=== PATIENT | male | born 1985 | race Asian ===

== ENCOUNTER 2019-02-21 09:23 | Day surgery (SDC) | payer MEDICAID ==
[~2019-02-21] VITALS: Ht 175.3 cm; Wt 71.8 kg
[2019-02-21 09:30] VITALS: BP 130/77
[2019-02-21] MEDS ORDERED: MIDAZolam 5mg/5ml vial ONE (10:01)
[2019-02-21] MEDS ORDERED: LIDOcaine Viscous 15ml cup ONE (10:01)
[2019-02-21] MEDS ORDERED: fentaNYL/PF 50MCG/1 ML 2ML syringe ONE (10:01)
[2019-02-21 10:47] VITALS: BP 121/83
[2019-02-21 10:57] VITALS: BP 128/82
[2019-02-21 11:07] VITALS: BP 113/72
[2019-02-21 11:17] VITALS: BP 115/84
== END 2019-02-21 11:28 | disposition home or self-care (01) ==
LOC: GI LAB 09:23
PROVIDERS: ATTEND Internal Medicine Gastroenterology
DX: K59.00 Constipation, unspecified (principal); K64.8 Other hemorrhoids; R10.13 Epigastric pain; K29.50 Unspecified chronic gastritis without bleeding
CPT/HCPCS: 43239; 45378; 99152; J2250; J3010; J7040; 99153; A4620

== ENCOUNTER 2019-08-07 05:28 | Day surgery (SDC) | payer MEDICAID ==
[2019-07-31 12:55] LABS: BASOPHILS % (AUTO) 0.5 % (0-1); EOSINOPHILS # (AUTO) 0.1 X10'3 (0-0.9); EOSINOPHILS % (AUTO) 1.3 % (0-6); LYMPHOCYTES # (AUTO) 1.7 X10'3 (1.1-4.8); LYMPHOCYTES % (AUTO) 37.7 % (21-51); MEAN CORPUSCULAR HEMOGLOBIN 29.5 PG (27.0-31.0); MEAN CORPUSCULAR HGB CONC 33.2 g/dL (33.0-36.5); MEAN CORPUSCULAR VOLUME 89.1 FL (78-98); MEAN PLATELET VOLUME 8.4 FL (7.4-10.4); MONOCYTES # (AUTO) 0.3 X10'3 (0-0.9); MONOCYTES % (AUTO) 7.1 % (2-12); NEUTROPHILS # (AUTO) 2.4 X10'3 (1.8-7.7); NEUTROPHILS % (AUTO) 53.4 % (42-75); PRE OP HEMATOCRIT 46.4 % (42.0-52.0); PRE OP HEMOGLOBIN 15.4 g/dL (14.0-17.9); PRE OP PLATELET COUNT 210 X10'3 (140-440); RED BLOOD COUNT 5.21 X10'6 (4.70-6.10); RED CELL DISTRIBUTION WIDTH 13.3 % (11.5-14.5)
[2019-07-31 13:13] LABS: ALKALINE PHOSPHATASE 52 IU/L (46-116); BLOOD UREA NITROGEN 18 MG/DL (7-18); BUN/CREATININE RATIO 18.2 (5.4-32.0); CALCIUM 8.7 MG/DL (8.5-10.1); CHLORIDE 105 MMOL/L (99-107); CREATININE 0.99 MG/DL (0.60-1.10); PRE OP ALT 19 U/L (30-65); PRE OP ANION GAP 4 (8-16); PRE OP AST 17 U/L (10-37); PRE OP BILIRUB, TOTAL 0.5 MG/DL (0.0-1.0); PRE OP GLUCOSE 95 MG/DL (70-104); PRE OP POTASSIUM 3.8 MMOL/L (3.4-5.1); PRE OP SODIUM 139 MMOL/L (135-145); eGFR 88 ML/MIN
[~2019-08-07] VITALS: Ht 172.7 cm; Wt 79.4 kg
[2019-08-07] VITALS (10 sets, daily range): BP systolic 112–128; BP diastolic 74–86
[~2019-08-07 05:28] MED LIST: INDOCYANINE GREEN 25 MG/10 ML VIAL IV ONE; NO HOME MEDS; ringers solution, lacted 1,000 ML IV SCH
[2019-08-07] MEDS ORDERED: famotidine 20mg tablet PO ONE (05:30)
[2019-08-07] MEDS ORDERED: ceFAZolin 2gm in dextrose, iso 50 ML IV ONE (05:30)
[2019-08-07] MEDS ORDERED: LIDOcaine 1% (10mg/ml) 2ml vial ONE (06:11)
[2019-08-07] MEDS ORDERED: LIDOcaine 1% 30ml preserv. free vial ONE (06:34)
[2019-08-07] MEDS ORDERED: BUPIVAcaine/PF 2.5 mg/ml (0.25%) 30ml vial ONE (06:34)
[2019-08-07] MEDS ORDERED: fentaNYL/PF 50MCG/1 ML 2ML syringe ONE (07:09)
[2019-08-07] MEDS ORDERED: propofol inj 20 ML IV ONE (07:09)
[2019-08-07] MEDS ORDERED: midazolam 2 mg/2 ml injection ONE (07:09)
[2019-08-07] MEDS ORDERED: rocuronium 10mg/ml inj IV ONE (07:10)
[2019-08-07] MEDS ORDERED: sevoflurane 250ml liquid IH ONE (07:24)
[2019-08-07] MEDS ORDERED: dexamethasone sod phosphate 4mg/ml inj. ONE (07:37)
[2019-08-07] MEDS ORDERED: ringers solution, lacted 1,000 ML IV SCH (07:57)
[2019-08-07] MEDS ORDERED: morphine 4 MG/ML inj SYRINge IV PRN (08:00)
[2019-08-07] MEDS ORDERED: proCHLORperazine 10 MG/2 ml inj IV PRN (08:00)
[2019-08-07] MEDS ORDERED: ondansetron/PF 4mg/2ml inj IV PRN (08:00)
[2019-08-07] MEDS ORDERED: meperidine/PF 25mg/ml syringe IV PRN ×3 (08:00)
[2019-08-07] MEDS ORDERED: morphine 2 MG/ML inj. syringe IV PRN (08:00)
[2019-08-07] MEDS ORDERED: ondansetron/PF 4mg/2ml inj ONE (08:14)
[2019-08-07] MEDS ORDERED: sugammadex 200mg/2ml injection IV ONE (08:15)
--- NOTE | 2019-08-07 08:37 | NUR ---
Received from OR via [facility], accompanied by Anesthesiologist DR DE JESUS and report given by Anesthesiologist. PT VERY DROWSY, NO S/S OF DISTRESS/DISCOMFORT, ABDOMEN W/4 LAP SITES W/BANDAIDS CDI. Addendum: 08/07/19 at 0852 by Penny Aguirre RN Amended: Links added.
[2019-08-07] MEDS ORDERED: HYDROcodone/acetaminophen 5mg/325mg tablet PO PRN (08:40)
--- NOTE | 2019-08-07 10:27 | NUR ---
D/C INSTRUCTIONS GIVEN AND GONE OVER W/PT AND PTS WHOM VERBALIZE UNDERSTANDING, PT D/CD TO HOME VIA W/C TO PRIVATE VEHICLE W/O INCIDENT. Addendum: 08/07/19 at 1048 by Penny Aguirre RN Amended: Links added.
== END 2019-08-07 10:27 | disposition home or self-care (01) ==
LOC: PAS 05:28
PROVIDERS: ATTEND Surgery
DX: K81.1 Chronic cholecystitis (principal); Z11.59 Encounter for screening for other viral diseases
CPT/HCPCS: 36415; 47563; 80053; 82948; 85025; C9399; J1100; J2001; J2250; J2405; J2704; J3010; J3490; J7120; S2900; U0003; A4215; A4618; A7000